=== PATIENT | female | born 1995 | race Caucasian/White ===

== ENCOUNTER 2018-06-08 14:29 | Emergency (ER) | payer MEDICAID ==
[~2018-06-08] VITALS: Ht 147.3 cm; Wt 43.2 kg
[~2018-06-08 14:29] MED LIST: BACTRIM DS TABL1 TAB PO; DEPO-PROVER150 MG/ML IM; HYDROCODON-ACE1 EAC7 PO; NORCO 5/325 TAB1 TA1 PO; OMNICEF300 MG PO; ZOFRAN ODT4 MG/UDTAB PO
[2018-06-08 14:34] VITALS: Ht 147.3 cm; Wt 43.2 kg
[2018-06-08] MEDS ORDERED: LAMICTAL100 MG PO (14:36)
[2018-06-08 15:19] LABS: BASOPHILS 0.3 % (0-2); EOSINOPHILS 0.7 % (0-7); HEMATOCRIT 43.3 % (36.0-48.0); HEMOGLOBIN 12.8 g/dL (12-16); IMMATURE GRANULOCYTES 0.3 % (0-5); LYMPHOCYTES 22.8 % (15-50); MCHC 29.6 g/dL (31.0-37.0); MCV 101.6 fL (80.0-100.0); MEAN PLATELET VOLUME 12.7 fL (7.4-10.4); MONOCYTES 6.2 % (2-11); NEUTROPHILS 69.7 % (40-80); PLATELET COUNT 230 10x3/uL (130-400); RBC 4.26 10x6/uL (4.00-5.40); RDW 14.7 % (11.5-14.5); WBC 16.2 10x3/uL (4.8-10.8)
[2018-06-08 15:38] LABS: ALBUMIN 4.1 g/dL (3.4-5.0); ANION GAP 21.6 mmol/L (8-16); BILIRUBIN - TOTAL 0.44 mg/dL (0.2-1.3); CALCIUM 8.8 mg/dL (8.5-10.1); CARBON DIOXIDE 20.9 mmol/L (21.0-32.0); MAGNESIUM - SERUM 1.9 mg/dL (1.8-2.4); POTASSIUM - SERUM 3.5 mmol/L (3.5-5.1); PROTEIN - SERUM 7.4 g/dL (6.4-8.2)
[2018-06-08 17:06] LABS: APPEARANCE CLEAR (CLEAR); BILIRUBIN NEGATIVE (NEGATIVE); COLOR YELLOW (YELLOW); GLUCOSE NEGATIVE (NEGATIVE); KETONE SMALL mg/dL (NEGATIVE); NITRITE NEGATIVE (NEGATIVE); PROTEIN NEGATIVE (NEGATIVE); UROBILINOGEN NORMAL (NORMAL)
[2018-06-08 17:16] LABS: UDS - AMPHET NEGATIVE QUAL (NEGATIVE); UDS - BARB NEGATIVE QUAL (NEGATIVE); UDS - BENZO NEGATIVE QUAL (NEGATIVE); UDS - COCAINE NEGATIVE QUAL (NEGATIVE); UDS - OPIATE POSITIVE QUAL (NEGATIVE); UDS - PCP NEGATIVE QUAL (NEGATIVE); UDS - THC POSITIVE QUAL (NEGATIVE)
[2018-06-08] MEDS ORDERED: LAMICTAL150 M1 PO (18:45)
[2018-06-08] MEDS ORDERED: BUTALB-APAP-CA1 EACH PO (18:46)
[2018-06-08] MEDS ORDERED: ZOFRAN ODT4 MG/UDTAB PO (18:46)
[2018-06-08 19:20] VITALS: BP 124/64
== END 2018-06-08 19:20 | disposition home or self-care (01) ==
LOC: D.ER 14:29
PROVIDERS: Emergency Medicine
DX: G40.909 Epilepsy, unspecified, not intractable, without status epilepticus (principal); E86.0 Dehydration